=== PATIENT | female | born 1955 | race Caucasian/White ===

== ENCOUNTER 2023-06-05 16:33 | Emergency (ER) | payer MEDICARE, OTHER, SELFPAY ==
[2023-06-05 16:36] VITALS: BP 155/82
[2023-06-05 16:50] VITALS: BP 158/67
[2023-06-05 18:11] LABS: % Basophils 0.4 % (0-2); % Eosinophils 0.7 % (0-6); % Immature Granulocytes 0.3 % (0-0.5); % Lymphocytes 29.4 % (20.5-51.1); % Neutrophils 63.2 % (42.2-75.2); Absolute Eosinophils 0.1 10^3/uL (0-0.7); Absolute Lymphocytes 2.2 10^3/uL (1.2-3.4); Absolute Monocytes 0.5 10^3/uL (0.1-0.6); Absolute Neutrophils 4.8 10^3/uL (1.4-6.5); Hematocrit 36.2 % (37.0-47.0); Hemoglobin 12.7 g/dL (12.0-16.0); Mean Corp Hgb Conc. 35.1 g/dL (33.0-37.0); Mean Corpuscular Hgb 29.6 pg (27.0-31.0); Mean Corpuscular Volume 84.4 fL (81.0-99.0); Mean Platelet Volume 8.6 fL (7.4-10.4); Nucleated Red Blood Cells % 0 %; Platelet Count 340 10^3/uL (130-400); Red Blood Cell Count 4.29 10^6/uL (4.20-5.40); Red Cell Dist. Width 12.7 % (11.5-14.5); White Blood Cell Count 7.6 10^3/uL (4.8-10.8)
[2023-06-05 18:25] LABS: ALT (SGPT) 33 U/L (0-35); AST (SGOT) 34 U/L (14-36); Albumin 4.2 g/dl (3.5-5.0); Alkaline Phosphatase 72 U/L (38-126); Blood Urea Nitrogen 17 mg/dl (7-17); Calcium 9.9 mg/dl (8.4-10.2); Carbon Dioxide 28 mmol/L (22-30); Chloride 102 mmol/L (98-107); Glucose 89 mg/dl (70-99); Potassium 4.4 mmol/L (3.5-5.1); Sodium 138 mmol/L (135-145); Total Bilirubin 0.6 mg/dl (0.2-1.3); Total Protein 7.6 g/dl (6.3-8.2); eGFR > 60.00
[2023-06-05 18:34] LABS: Troponin I < 0.012 ng/ml
[2023-06-05 18:48] VITALS: BP 128/68
--- NOTE | 2023-06-05 19:03 | ED.GENMED ---
History of Present Illness
General
Chief Complaint: Extremity Pain (non-traumatic)
Source: patient and spouse
Exam Limitations: none
Time Seen by Provider: 06/05/23 17:28
Nursing documentation reviewed up to this point in time: agreed with
Travel History
Have you had any contact with someone who has COVID-19?: No
Do you have any symptoms of coronavirus? Fever > 100 degrees, chills, cough, shortness of breath, sore throat, loss of taste or smell, muscle aches, or headache?: No
History of Present Illness
History of Present Illness:
67-year-old female presenting to the emergency department today with concerns of right-sided shoulder discomfort over the past few days with some tingling sensation down her right arm. This has been ongoing for the last few days denies specific
injury. Denies numbness weakness denies chest pain shortness of breath nausea vomiting diaphoresis. Denies specific known injury.
Past History
Past History
ED Past Medical History: None
Social History
Personal:
Review of Systems
Review of Systems
Allergies reviewed?: Yes
All Other Systems: ROS reviewed and negative except as documented in HPI and ROS
Phy Exam
Physical Exam
Physical Exam:
GENERAL: Alert , in no apparent distress
EYE: pupils equal and reactive
NECK: Supple, no significant adenopathy.
ENT: o/p clr, mmm.
CARDIAC: Regular rate and rhythm .
LUNGS: Clear breath sounds bilaterally, no acute respiratory distress, no wheezes/rales/rhonchi
ABDOMEN: Soft, without focal tenderness, no r/g, no cvat
NEUROLOGICAL: Alert and oriented, no focal neuro deficits 5 out of 5 upper and lower extremity strength normal sensation palpated bilaterally normal finger-nose intervention no pronator drift
SKIN: Warm and dry, skin intact.
MUSCULOSKELETAL: No edema, well perfused.
PSYCH: Normal and appropriate interaction.
Course
Orders/Labs/Results
Orders:
Orders
06/05/23 16:39
EKG [Electrocardiogram (*1)] Urgent
Reason for Study: Other
Other Reason for Exam: R arm pain
EKG- Treatment ONCE
06/05/23 17:39
CR Shoulder, Trauma - Right Urgent
Comment:
Reason For Exam: right shoulder pain
06/05/23 18:04
Complete Blood Count/With Diff Urgent
Comprehensive Metabolic Panel Urgent
Troponin I Urgent
Abnormal Lab Results
06/05/23
18:04
Hct 36.2 L %
(37.0-47.0)
06/05/23 18:04
06/05/23 18:04
Vital Signs
Initial and Last Documented VS:
Initial Vital Signs
Temp Pulse Resp BP Pulse Ox
98.3 F 95 18 155/82 99
06/05/23 16:36 06/05/23 16:36 06/05/23 16:36 06/05/23 16:36 06/05/23 16:36
Last Documented Vital Signs
Temp Pulse Resp BP Pulse Ox
98.3 F 95 18 128/68 99
06/05/23 16:36 06/05/23 19:12 06/05/23 16:36 06/05/23 19:12 06/05/23 16:36
MDM/Problems Addressed
MDM/Problems Addressed:
67-year-old female presenting to the emergency department today with concerns of intermittent tingling and shooting discomfort down the right arm over the past few days. Symptoms are intermittent and last for a few seconds at a time and are
specifically with movement. She denies any associated symptoms otherwise. No chest pain. Here EKG normal vital signs normal. Reproducible symptoms with movement of the right arm but otherwise normal neurologic evaluation. Does not seem to be
consistent with central process due to intermittent nature and positional nature. Most likely be radicular symptoms. Does not appear to be consistent with referred pain considering reproducibility of symptoms as well as negative cardiac workup..
Patient appears stable for outpatient management advised close outpatient follow-up return precautions given.
*Critical Care Note
Total Time (30-74mins, 75-104mins- exclusive of procedures): Not Applicable
ED Attending Note
-
Portions of this chart may have been created with voice recognition software.� Occasional wrong word or��sound alike� substitutions may have occurred due to the inherent limitations of voice recognition software.
Discharge Plan
Departure
Patient Disposition: Home (Routine Discharge)
Date of Disposition: 06/05/23
Time of Disposition: 19:03
Patient with high blood pressure during this ER visit?: No
Condition: Good
Covid-19: Not Applicable
Discharge Problem:
Arm pain, right
Instructions: Muscle and Bone Pain (DC)
Prescriptions:
No Action
No Current Medications
0
Referrals:
LORI ARELLANO MD [Family Provider] -
Activity Restrictions/Additional Instructions:
You came to the emergency department today with concerns of symptoms into your right arm. Here your reassuring evaluation does not appear to be consistent with a heart issue please follow close with the primary care doctor. Return to the emergency
department for any worsening, new or concerning symptoms.
Interventions
Interventions:
*Risk Screen - Suicide Last Done: 06/05/23 16:36
*General Assessment Last Done: 06/05/23 16:36
*Neglect/Abuse Screening Last Done: 06/05/23 19:12
*ED COVID-19 Vaccine History Last Done: 06/05/23 16:36
*Nursing Disposition Last Done: 06/05/23 19:12
ED-Skin Assessment Last Done: 06/05/23 16:51
ED-Peripheral Vascular Assessment Last Done: 06/05/23 16:51
ED-Musculoskeletal Assessment Last Done: 06/05/23 16:51
Discharge Date and Time
Discharge Date/Time: 06/05/23 19:14
[2023-06-05 19:12] VITALS: BP 128/68
== END 2023-06-05 19:14 | disposition home or self-care (01) ==
LOC: EMR 16:33
PROVIDERS: Physician Assistant; EMERGENCY PHYSICIAN Emergency Medicine; FAMILY PHYSICIAN Internal Medicine
DX: M79.601 Pain in right arm (principal)
CPT/HCPCS: 99285; 73030; 80053; 84484; 85025; 93005

== ENCOUNTER 2023-09-04 12:29 | Emergency (ER) | payer MEDICARE, OTHER, SELFPAY ==
[2023-09-04 12:43] VITALS: BP 131/60
--- NOTE | 2023-09-04 14:01 | ED.GENMED ---
History of Present Illness
<Louise Sylvester PA-C - Last Filed: 09/04/23 18:32>
General
Chief Complaint: Musculo-Skeletal Complaint
Source: patient
Exam Limitations: none
Time Seen by Provider: 09/04/23 13:34
Nursing documentation reviewed up to this point in time: agreed with
Travel History
Have you had any contact with someone who has COVID-19?: No
Do you have any symptoms of coronavirus? Fever > 100 degrees, chills, cough, shortness of breath, sore throat, loss of taste or smell, muscle aches, or headache?: No
History of Present Illness
History of Present Illness:
Patient is a 67 year old female presenting to the emergency department for evaluation of right ankle injury. Patient states that she was walking down the staircase in her house yesterday when she misjudged the bottom step causing her to fall and
invert her right ankle. She reports falling on her right side. She is having some minimal pain in her right shoulder. She did not hit her head or lose conscious. She denies any headache, neck pain, back pain, hip pain. She denies sustaining any
other injuries in the fall
She reports pain and swelling in her right ankle. Her did go get her cane which has been assisting her while ambulating. She denies any numbness or tingling in her right lower extremity.
Past History
<Louise Sylvester PA-C - Last Filed: 09/04/23 18:32>
Past History
ED Past Medical History: None
Social History
Personal:
Review of Systems
<Louise Sylvester PA-C - Last Filed: 09/04/23 18:32>
Review of Systems
Allergies reviewed?: Yes
All Other Systems: ROS reviewed and negative except as documented in HPI and ROS
Phy Exam
<Louise Sylvester PA-C - Last Filed: 09/04/23 18:32>
Physical Exam
Physical Exam:
Vitals: Patient's vital signs are stable. Afebrile
General: Patient is well appearing, no acute distress
Skin: Warm and dry, no rashes or lesions
Head: Normocephalic, atraumatic
Eyes: Sclera nonicteric. EOMs intact. No nystagmus.
Throat: Protecting airway
Neck: Normal ROM, no cervical spine tenderness, no meningismus
Cardiac: Regular rate and rhythm, no murmurs.
Pulm: Normal respiratory effort, no wheezes, rales, rhonchi heard on exam.
Abdomen: No abdominal tenderness.
Extremities: Mild edema and tenderness of right ankle at lateral malleolus greater than medial malleolus. Point tenderness at ATFL insertion site. No tenderness at base of fifth metatarsal. No tenderness at head of fibula. No tenderness midfoot,
hindfoot, or lateral foot. Achilles tendon intact. Good distal pulses. No significant ecchymoses of right ankle or foot. Mild tenderness of right shoulder with abduction. No bony tenderness at right shoulder or clavicle.
Neuro: AAOx3. CN II-XII intact. No focal neurologic deficits.
Psychiatric: Normal affect.
Course
<Louise Sylvester PA-C - Last Filed: 09/04/23 18:32>
Orders/Labs/Results
Orders:
Orders
09/04/23 12:46
Ankle, Right 3 view CR [CR Ankle - Right Min 3 Views *] Urgent
Comment:
Reason For Exam: pain and swelling
09/04/23 14:01
Ibuprofen [Motrin] 400 mg PO NOW STA
09/04/23 14:19
Air Splint Right-Treatment ONCE
Vital Signs
Initial and Last Documented VS:
Initial Vital Signs
Temp Pulse Resp BP Pulse Ox
98.2 F 84 20 131/60 99
09/04/23 12:43 09/04/23 12:43 09/04/23 12:43 09/04/23 12:43 09/04/23 12:43
Last Documented Vital Signs
Temp Pulse Resp BP Pulse Ox
98.2 F 84 20 131/60 99
09/04/23 12:43 09/04/23 12:43 09/04/23 12:43 09/04/23 12:43 09/04/23 12:43
<Julio Olivares MD - Last Filed: 09/04/23 14:18>
Orders/Labs/Results
Orders:
Orders
09/04/23 12:46
Ankle, Right 3 view CR [CR Ankle - Right Min 3 Views *] Urgent
Comment:
Reason For Exam: pain and swelling
09/04/23 14:01
Ibuprofen [Motrin] 400 mg PO NOW STA
09/04/23 14:19
Air Splint Right-Treatment ONCE
Vital Signs
Initial and Last Documented VS:
Initial Vital Signs
Temp Pulse Resp BP Pulse Ox
98.2 F 84 20 131/60 99
09/04/23 12:43 09/04/23 12:43 09/04/23 12:43 09/04/23 12:43 09/04/23 12:43
Last Documented Vital Signs
Temp Pulse Resp BP Pulse Ox
98.2 F 84 20 131/60 99
09/04/23 12:43 09/04/23 12:43 09/04/23 12:43 09/04/23 12:43 09/04/23 12:43
<Louise Sylvester PA-C - Last Filed: 09/04/23 18:32>
MDM/Problems Addressed
Differential Diagnosis Includes:
Not limited to: Sprain, fracture, Achilles tendon rupture
MDM/Problems Addressed:
67-year-old female presenting for evaluation of right ankle injury sustained during trip and fall yesterday. Mild pain and swelling of right ankle and pain with ambulation. Also reports mild pain in right shoulder. No numbness or tingling in
right lower extremity. Vital stable. Exam as above. She does have mild swelling and tenderness at right ankle most significantly at lateral malleolus. Achilles intact. Good distal pulses. She does have mild pain in right shoulder with movement
but no bony tenderness or deformity appreciated. X-ray of ankle negative for any acute fracture. Offered patient x-ray of shoulder although very low suspicion for bony abnormality. She will monitor for now. Will treat for ankle sprain. Will
discharge patient in air splint with instructions to rest, ice, elevate. NSAIDs for pain. Orthopedic follow-up. Stable for discharge.
Chronic conditions affecting care:
N/A
Acute Exacerbation and/or Progression of Chronic Illness:
N/A
<Louise Sylvester PA-C - Last Filed: 09/04/23 18:32>
*Radiology
Radiology exam reviewed: preliminary read by ED provider and radiology read reviewed
*Pulse Oximetry
Patient hypoxic: no
*EKG
Interpreted by ED Provider?: NA
*Porcelain Technician Interpretation
Rate: Porcelain Technician- N/A
*Critical Care Note
Total Time (30-74mins, 75-104mins- exclusive of procedures): Not Applicable
ED Attending Note
<Louise Sylvester PA-C - Last Filed: 09/04/23 18:32>
-
Portions of this chart may have been created with voice recognition software.� Occasional wrong word or��sound alike� substitutions may have occurred due to the inherent limitations of voice recognition software.
<Julio Olivares MD - Last Filed: 09/04/23 14:18>
ED Attending Note
Patient seen and examined by attending physician: Yes
I performed the substantive portion of visit, reviewed & personally made and approve the management plan that is documented in note by myself or NICOLE.: Yes
ED Attending Note:
Patient rolled her ankle falling down a last stair. Also hit her right shoulder. This occurred yesterday. Able to bear weight with pain. No other injury or complaint
Swelling right lateral great your the medial ankle with tenderness at the lateral and medial malleolus. Achilles intact. Negative proximal fifth metatarsal. Negative proximal fibula tibia. No open wound. Good distal pulses and color. Right
shoulder able to abduct fully. Mild tenderness over the deltoid. No clavicular or AC tenderness. No deformity.
X-ray negative. Ankle sprain. Shoulder contusion. Did offer x-ray to the shoulder although clinically very low suspicion for bony injury. Patient will hold off. Air splint cane and orthopedic follow-up
Discharge Plan
Departure
Patient Disposition: Home (Routine Discharge)
Date of Disposition: 09/04/23
Time of Disposition: 14:21
Patient with high blood pressure during this ER visit?: No
Condition: Good
Covid-19: Not Applicable
Discharge Problem:
Right ankle sprain
Instructions: Ankle Sprain ED
Prescriptions:
No Action
No Current Medications
0
Referrals:
Abdi Lin MD [Active] - As needed
LORI ARELLANO MD [Family Provider] -
Temo Wilkins MD [Active] - As needed
Activity Restrictions/Additional Instructions:
RETURN TO THE EMERGENCY DEPARTMENT WITH ANY INTRACTABLE PAIN, SEVERE SWELLING, REDNESS, OR WARMTH OF RIGHT ANKLE, NUMBNESS/TINGLING IN RIGHT LOWER EXTREMITY, WORSENING IN CURRENT SYMPTOMS, OR ANY OTHER SYMPTOMS
-You should ice and elevate right ankle. You can take Motrin/Tylenol as needed for discomfort. Keep ankle in splint and weight-bear as tolerated. Continue to use cane over the next few days to assist with ambulation.
-You should follow-up with orthopedics if symptoms persist/do not improve over the next 2 weeks. The contact information has been provided for you above.
Interventions
Interventions:
*Risk Screen - Suicide Last Done: 09/04/23 13:37
*General Assessment Last Done: 09/04/23 13:37
*Neglect/Abuse Screening Last Done: 09/04/23 13:37
*ED COVID-19 Vaccine History Last Done: 09/04/23 13:37
*Nursing Disposition Last Done: 09/04/23 14:38
ED-Musculoskeletal Assessment Last Done: 09/04/23 13:37
Discharge Date and Time
Discharge Date/Time: 09/04/23 14:38
Print Language: [id number]
[2023-09-04] MEDS: MOTRIN 400 MG PO (14:31)
== END 2023-09-04 14:38 | disposition home or self-care (01) ==
LOC: EMR 12:29
PROVIDERS: EMERGENCY PHYSICIAN Emergency Medicine; FAMILY PHYSICIAN Internal Medicine
DX: S93.401A Sprain of unspecified ligament of right ankle, initial encounter (principal); W10.9XXA Fall (on) (from) unspecified stairs and steps, initial encounter; Y93.01 Activity, walking, marching and hiking
CPT/HCPCS: 99283; 29515; 73610